=== PATIENT | female | born 1950 | race Caucasian/White ===

== ENCOUNTER 2019-12-14 23:33 | Emergency (ER) | payer OTHER ==
[~2019-12-14] VITALS: Ht 144.8 cm; Wt 59.0 kg
[2019-12-14 23:44] VITALS: BP 126/55
--- NOTE | 2019-12-14 23:49 | NUR ---
PT AMBULATED TO BED 7 WITH STEADY GAIT.
--- NOTE | 2019-12-14 23:55 | NUR ---
PT 69 Y/O FEMALE BIB SELF FOR C/O EPIGASTRIC ABD PAIN X 1 DAY. PAIN 6/10, NON-RADIATING AND SHARP. ABD IS SOFT, ROUND, AND NON-TENDER. PT HAD X 3 EPISODES OF DIARRHEA THAT WAS DARK RED IN COLOR. PT DENIES N/V. ADMITS TO FEELING LETHARGIC. PT RESPIRATIONS ARE EVEN AND UNLABORED. SKIN IS WARM AND DRY TO TOUCH. PT ON YARROW GATHERER AND VSS. MEDHX: HTN, HYPERLIPIDEMA ALLERGIES: NKA
--- NOTE | 2019-12-14 23:59 | NUR ---
LAB AT BEDSIDE.
[2019-12-15 00:18] LABS: BASOPHILS # (AUTO) 0.1 K/uL (0.00-0.22); BASOPHILS % (AUTO) 0.4 % (0.0-2.0); EOSINOPHILS # (AUTO) 0.1 K/uL (0-0.4); EOSINOPHILS % (AUTO) 0.6 % (0.0-4.0); HEMATOCRIT 26.6 % (36-48); HEMOGLOBIN 8.8 g/dL (12.0-16.0); LYMPHOCYTES # (AUTO) 2.9 K/uL (2.5-16.5); LYMPHOCYTES % (AUTO) 23.8 % (20.5-51.1); MEAN CORPUSCULAR HEMOGLOBIN 32 pg (27-31); MEAN CORPUSCULAR HGB CONC 33 g/dL (33-37); MEAN CORPUSCULAR VOLUME 95.3 fL (80-94); MONOCYTES % (AUTO) 8.1 % (1.7-9.3); NEUTROPHILS # (AUTO) 8.1 K/uL (1.8-7.7); NEUTROPHILS % (AUTO) 67.1 % (42.2-75.2); PLATELET COUNT (AUTO) 194 K/uL (140-450); RED BLOOD CELL COUNT(AUTO) 2.79 MIL/uL (4.20-5.40); RED CELL DISTRIBUTION WIDTH 12.6 % (11.6-13.7)
[2019-12-15 00:42] LABS: ALBUMIN 3.6 g/dL (3.4-5.0); ANION GAP 12.5 (8-16); CARBON DIOXIDE 27.9 mmol/L (21-32); CREATININE 1.1 mg/dL (0.6-1.3); POTASSIUM 4.4 mmol/L (3.5-5.1); TOTAL BILIRUBIN 0.3 mg/dL (0.0-1.0)
--- NOTE | 2019-12-15 01:05 | NUR ---
SPOKE TO OLIVA, DESK TOP PUBLISHER FOR AN UPDATE ON PT STATUS AND FOR POSSIBLE PEER TO PEER VIEW. FAX # [phone]
--- NOTE | 2019-12-15 01:40 | NUR ---
Lennie loredo in [facility] - 12/15/19 at 0149 by [facility] MRSA NASAL SWAB COLLECTED AND GIVEN TO TELEPHOTO ENGINEER.
--- NOTE | 2019-12-15 01:51 | NUR ---
DR. FITZGERALD AT BEDSIDE. PT BEING SET UP FOR TRANSFER.
--- NOTE | 2019-12-15 02:02 | NUR ---
CONSENT SIGNED FOR TRANSFER ACKNOWLEDGEMENT.
--- NOTE | 2019-12-15 02:09 | NUR ---
PT AMBULATED TO RESTROOM WITH STEADY GAIT.
--- NOTE | 2019-12-15 02:17 | NUR ---
PT AMBULATED TO BED WITH STEADY GAIT.
[2019-12-15] MEDS ORDERED: MORPHINE SULFATE 4 MG/ML SYR IVP ONE (02:35)
--- NOTE | 2019-12-15 03:00 | NUR ---
Patient to be transferred to [facility]. Is being transferred due to UPPER GI BLEED. Receiving facility has accepting physician and available space. ER physician has signed transfer form. Patient or responsible libertarian has agreed to transfer and signed form. Patient belongings inventoried and will be sent with patient. Copy of nursing notes, lab reports, EKG, Physicians Orders and X-rays to be sent with patient. Report called to [facility] at receiving facility. [facility] ambulance service has been called for transfer. ETA is 30 MIN.
--- NOTE | 2019-12-15 03:37 | NUR ---
PT IV SITE IS PATENT. NO REDNESS, SWELLING, OR C/O PAIN AT SITE.
[2019-12-15 03:38] VITALS: BP 130/62
--- NOTE | 2019-12-15 03:38 | NUR ---
Patient [id number]. Patient transfered with v/s stable. Patient verbalized understanding of why she is being transfered and signed consent. Ambulatory with steady gait to [facility] rony. All questions addressed prior to transfer. ID band removed.
== END 2019-12-15 03:38 | disposition short-term general hospital (02) ==
LOC: MED 23:33
DX: K92.2 Gastrointestinal hemorrhage, unspecified (principal); E78.5 Hyperlipidemia, unspecified; I10 Essential (primary) hypertension; R10.9 Unspecified abdominal pain; Z90.49 Acquired absence of other specified parts of digestive tract; Z98.890 Other specified postprocedural states
CPT/HCPCS: 36415; 80053; 85025; 85610; 85730; 96374; 99283; J2270